=== PATIENT | female | born 1990 | race Caucasian/White ===

== ENCOUNTER 2019-03-17 15:50 | Inpatient (IN) | payer MEDICAID ==
[~2019-03-17] VITALS: Ht 165.1 cm; Wt 86.2 kg
[2019-03-17] MEDS: LACTATED RINGERS 500ML 500 ML IV SCH (16:50)
[2019-03-17 16:59] LABS: CLARITY URINE CLEAR (CLEAR); COLOR URINE YELLOW (YELLOW); KETONES URINE NEGATIVE (NEGATIVE); LEUKOCYTE ESTERASE URINE NEGATIVE (NEGATIVE); NITRITE URINE NEGATIVE (NEGATIVE); OCCULT BLOOD URINE NEGATIVE (NEGATIVE); PROTEIN URINE NEGATIVE (NEGATIVE); SPECIFIC GRAVITY URINE 1.019 (1.005-1.030)
[2019-03-17] MEDS ORDERED: NALOXONE HCL 0.4 MG/ML 1ML VIAL IM PRN (17:30)
[2019-03-17] MEDS ORDERED: AMPICILLIN 2,000 MG in SODIUM CHLORIDE 0.9% 100 ML IV SCH (17:30)
[2019-03-17] MEDS ORDERED: MAGNESIUM 20 G PREMIX (L & D) 500 ML IV SCH (17:30)
[2019-03-17] MEDS ORDERED: MAGNESIUM SULFATE 20 GM in DEXT 5% WATER 500 ML IV SCH (17:45)
[2019-03-17] MEDS: MAGNESIUM SULFATE 20 GM in DEXT 5% WATER 460 ML IV SCH (17:52)
[2019-03-17 17:58] LABS: BASOPHILS % 0.3 % (0.0-2.0); EOSINOPHILS % 0.7 % (0.0-5.0); HEMATOCRIT. 36.8 % (36.0-48.0); HEMOGLOBIN. 12.4 g/dL (12.0-16.0); LYMPHOCYTES % 18.3 % (20.0-50.0); MEAN CORPUSCULAR HEMOGLOBIN 31.3 pg (28.0-32.0); MEAN CORPUSCULAR VOLUME 92.6 fL (81.0-99.0); MEAN PLATELET VOLUME 8.1 fl (7.4-10.4); MONOCYTES % 8.7 % (2.0-8.0); PLATELET 187 x1000/uL (130-400); RED BLOOD CELL COUNT 3.97 mill/uL (4.2-5.4); RED CELL DISTRIBUTION WIDTH 14.1 % (11.6-14.6)
[2019-03-17 18:05] LABS: INR 0.9; PARTIAL THROMBOPLASTIN TIME 29.5 sec (23.4-31.0); PROTHROMBIN TIME 9.7 sec (9.6-11.0)
[2019-03-17] MEDS: BETAMETHASONE ACET/BETAMET 30 MG/5 ML VIAL IM SCH (18:30)
[2019-03-17 18:32] LABS: HEPATITIS B SURFACE ANTIGEN NEGATIVE
[2019-03-17] MEDS ORDERED: ACETAMINOPHEN 325MG TABLET PO PRN (19:45)
[2019-03-18] MEDS: AMPICILLIN 1,000 MG in SODIUM CHLORIDE 0.9% 50 ML IV SCH ×4 (00:53→18:00)
[2019-03-18] MEDS: LACTATED RINGERS 500ML 500 ML IV SCH ×3 (01:53→21:13)
[2019-03-18] MEDS: MAGNESIUM SULFATE 20 GM in DEXT 5% WATER 460 ML IV SCH ×2 (02:39→14:08)
[2019-03-18 09:10] LABS: *AMPHETAMINES SCREEN URINE NEGATIVE (NEGATIVE); *BARBITURATES SCREEN URINE NEGATIVE (NEGATIVE); *BENZODIAZEPINES SCREEN URINE NEGATIVE (NEGATIVE); *COCAINE SCREEN URINE NEGATIVE (NEGATIVE)
[2019-03-18 09:11] LABS: CANNABINOID URINE SCREEN NEGATIVE (NEGATIVE); METHADONE URINE SCREEN NEGATIVE (NEGATIVE); OPIATES URINE SCREEN NEGATIVE (NEGATIVE); PHENCYCLIDINE URINE SCREEN NEGATIVE (NEGATIVE)
[2019-03-18] MEDS: BETAMETHASONE ACET/BETAMET 30 MG/5 ML VIAL IM SCH (18:27)
[2019-03-19] MEDS: AMPICILLIN 1,000 MG in SODIUM CHLORIDE 0.9% 50 ML IV SCH (00:39)
[2019-03-19] MEDS: MAGNESIUM SULFATE 20 GM in DEXT 5% WATER 460 ML IV SCH (02:55)
[2019-03-19] MEDS: LACTATED RINGERS 500ML 500 ML IV SCH (04:29)
== END 2019-03-19 08:45 | disposition home or self-care (01) | DRG 563 ==
LOC: OBSVTOIN 15:50 → 8 EST LDRP 15:50
PROVIDERS: ADMIT Obstetrics & Gynecology; ATTEND Obstetrics & Gynecology
DX: O60.03 Preterm labor without delivery, third trimester (principal); Z3A.33 33 weeks gestation of pregnancy
CPT/HCPCS: 36415; 76805; 76818; 80305; 81003; 82731; 83735; 85025; 86592; 86703; 86762; 86850; 86900; 87340; G0378; J0290; J0702; J3475; J7050; J7060; J7120; A4315

== ENCOUNTER 2019-04-06 15:14 | Observation (INO) | payer MEDICAID ==
[2019-04-06] MEDS ORDERED: LACTATED RINGERS 1,000 ML IV SCH (16:15)
[2019-04-06 17:01] LABS: CLARITY URINE TURBID (CLEAR); COLOR URINE YELLOW (YELLOW); KETONES URINE NEGATIVE (NEGATIVE); LEUKOCYTE ESTERASE URINE TRACE (NEGATIVE); NITRITE URINE NEGATIVE (NEGATIVE); OCCULT BLOOD URINE NEGATIVE (NEGATIVE); PROTEIN URINE NEGATIVE (NEGATIVE); SPECIFIC GRAVITY URINE 1.013 (1.005-1.030); UROBILINOGEN URINE 0.2 E.U./dL (0.2-1.0)
[2019-04-29] MEDS ORDERED: IBUP-2028 PO (06:45)
[2019-04-29] MEDS ORDERED: FERR325T23 PO (06:45)
== END 2019-04-06 17:55 | disposition home or self-care (01) ==
LOC: 8 EST LDRP 15:14
PROVIDERS: ADMIT Obstetrics & Gynecology; ATTEND Obstetrics & Gynecology
DX: O62.9 Abnormality of forces of labor, unspecified (principal); Z3A.36 36 weeks gestation of pregnancy
CPT/HCPCS: 81003; 99281; G0378; 96360; 96361

== ENCOUNTER 2019-04-19 23:04 | Observation (INO) | payer MEDICAID ==
[~2019-04-19] VITALS: Ht 165.1 cm; Wt 88.5 kg
== END 2019-04-20 00:50 | disposition home or self-care (01) ==
LOC: 8 EST LDRP 23:04
PROVIDERS: ADMIT Obstetrics & Gynecology; ATTEND Obstetrics & Gynecology
DX: O62.9 Abnormality of forces of labor, unspecified (principal); Z3A.38 38 weeks gestation of pregnancy
CPT/HCPCS: 99281; G0378